=== PATIENT | male | born 1960 | race American Indian/Alaskan Native ===

== ENCOUNTER 2018-11-17 11:39 | Emergency (ER) | payer OTHER ==
[~2018-11-17] VITALS: Ht 170.2 cm; Wt 76.7 kg
[2018-11-17 12:17] VITALS: Ht 170.2 cm; Wt 76.7 kg
[2018-11-17 13:12] VITALS: BP 151/87
== END 2018-11-17 13:12 | disposition home or self-care (01) ==
LOC: ED 11:39
DX: J11.1 Influenza due to unidentified influenza virus with other respiratory manifestations (principal); M54.5 Low back pain; E78.00 Pure hypercholesterolemia, unspecified; Z88.1 Allergy status to other antibiotic agents
CPT/HCPCS: 87804; Q0092